=== PATIENT | female | born 1950 | race Caucasian/White ===

== ENCOUNTER 2017-11-13 06:57 | Day surgery (SDC) | payer MEDICARE, OTHER ==
[2017-11-13] MEDS ORDERED: PROPOFOL 20 ML ×2 (08:29)
[2017-11-13] MEDS ORDERED: MIDAZOLAM 1 MG/ML 2 ML INJ ×2 (08:29)
[2017-11-13] MEDS ORDERED: FENTAnyl 50 MCG/ML VIAL ×2 (08:29)
[2017-11-13] MEDS ORDERED: LIDOCAINE 1% (MDV) 20 ML INJ ×2 (08:30)
[2017-11-13] MEDS ORDERED: ROPIVACAINE 0.5 % 30 ML VIAL ×2 (08:34)
[2017-11-13] MEDS ORDERED: DEXAMETHASONE 4 MG/ML 1 ML INJ ×4 (08:35→09:05)
[2017-11-13] MEDS ORDERED: CEFAZOLIN 1 GM INJ ×2 (09:00)
[2017-11-13] MEDS ORDERED: ONDANSETRON 4 MG INJ ×2 (09:04)
[2017-11-13] MEDS ORDERED: FAMOTIDINE 20 MG INJ ×2 (09:05)
[2017-11-13] MEDS: LIDOCAINE 1% (MPF) 30 ML INJ ×2 (09:16)
[2017-11-13] MEDS: BUPIVACAINE 0.25% (MPF) 30 ML INJ ×2 (09:16)
[2017-11-13] MEDS ORDERED: HYDROmorphONE (0.2 MG/ML) 10ML SYG IV ×2 (11:30)
== END 2017-11-25 09:20 | disposition home or self-care (01) ==
LOC: SDS 06:57
DX: M21.612 Bunion of left foot (principal); M20.42 Other hammer toe(s) (acquired), left foot; I10 Essential (primary) hypertension; E11.9 Type 2 diabetes mellitus without complications; I25.10 Atherosclerotic heart disease of native coronary artery without angina pectoris; E78.5 Hyperlipidemia, unspecified
CPT/HCPCS: 28296; 82962